=== PATIENT | female | born 2000 | race Caucasian/White ===

== ENCOUNTER 2025-06-08 14:41 | Emergency (ER) | payer MEDICAID, OTHER ==
[~2025-06-08] VITALS: Ht 175.3 cm; Wt 93.9 kg
--- NOTE | 2025-06-08 14:48 | ECG ---
[facility] Test Date: 2025-06-08 Test Time: 14:46:05 Pat Name: MAIRA FRITZ Department: ER Room: Gender: F Bricklayer: KATY : 2000 Requested By: PERLA BRYAN Order Number: [id number] Reading MD: Gary Watkins Measurements Intervals [place] Rate: 134 P: 75 SC: 85 QRS: 97 QRSD: 80 T: -4 QT: 267 QTc: 399 Interpretive Statements Sinus tachycardia Ventricular premature complex Aberrant complex Borderline right axis deviation Borderline repolarization abnormality Baseline wander in lead(s) II,III,aVL,aVF Electronically Signed On 06-11-2025 19:22:22 PST by Gary Watkins Please click the below link to view image of tracing.
[2025-06-08] MEDS: SODIUM CHLORIDE 0.9% 1,000 ML IV ONE ×2 (15:11→15:57)
--- NOTE | 2025-06-08 15:48 | ED.PDOC ---
HPI Comments 24 year old female presents to the ED with a chief complaint of chest pain onset today. Patient states she woke up experiencing cough,used an inhaler that was prescribed about 2 weeks ago, was diagnosed with bronchitis. Shortly after she began experiencing chest pain, shortness of breath, generalized body aches, fever since this morning. Upon ED arrival, HR was 134, temperature 98.9 F. Denies congestion, dizziness, headache, nausea, vomiting, diarrhea, blurred vision. No other symptoms or modifying factors present at this time. Chief Complaint: Chest Pain Time Seen by MD: 15:50 Primary Care Provider: JOHNK Reviewed Notes: Medications, Allergies Allergies: Coded Allergies: NO KNOWN ALLERGIES (Unverified , 10/05/14) Information Source: Patient Mode of Arrival: Ambulatory Severity: Moderate Timing: Hours Duration: Since onset Prehospital treatment: None Location: Substernal Radiation: No Radiation Quality: Pressure Onset: At Rest Cardiac Risk Factors: None PE Risk Factors: None History of: None Modifying Factors: Nothing Associated Signs and Symptoms: SOB Past Medical History PAST MEDICAL HISTORY: Denies Surgical History: Denies all surgeries BILINGUAL PATIENT SUPPORT CASEWORKER History: No Pertinent BILINGUAL PATIENT SUPPORT CASEWORKER History Family History Family History: Unknown Social History Smoker: Non-Smoker Alcohol: Denies ETOH Use Drugs: Denies Drug Use Lives In: Home Constitutional: reports: others (generalzied body aches); denies: chills, diaphoresis, fatigue, fever, malaise, sweats, weakness EENTM: denies: blurred vision, double vision, ear bleeding, ear discharge, ear drainage, ear pain, ear ringing, eye pain, eye redness, hearing loss, mouth pain, mouth swelling, nasal discharge, nose bleeding, nose congestion, nose pa in, photophobia, tearing, throat pain, throat swelling, voice changes, others Respiratory: reports: cough, shortness of breath; denies: hemoptysis, orthopnea, SOB at rest, SOB with excertion, stridor, wheezing, others Cardiovascular: reports: chest pain; denies: dizzy spells, diaphoresis, Dyspnea on exertion, edema, irregular heart beat, left arm pain, lightheadedness, palpitations, PND, syncope, others Gastrointestinal: denies: abdomen distended, abdominal pain, blood streaked bowels, constipated, diarrhea, dysphagia, difficulty swallowing, hematemesis, melena, nausea, poor appetite, poor fluid intake, rectal bleeding, rectal pain, vomiting, others Genitourinary: denies: abnormal vagina bleeding, burning, dyspareunia, dysuria, flank pain, frequency, hematuria, incontinence, pain, , vagina discharge, urgency, others Neurological: denies: dizziness, fainting, headache, left sided numbness, left sided weakness, numbness, paresthesia, pre-existing deficit, right sided numbness, right sided weakness, seizure, speech problems, tingling, tremors, weakness, others Musculoskeletal: denies: back pain, gout, joint pain, joint swelling, muscle pain, muscle stiffness, neck pain, others Integumetry: denies: bruises, change in color, change in hair/nails, dryness, laceration, lesions, lumps, rash, wounds, others Allergic/Immunocompromised: denies: Difficulty Healing, Frequent Infections, Hives, Itching, others Hematologic/Lymphatic: denies: anemia, blood clots, easy bleeding, easy bruising, swollen glands, others Endocrine: denies: excessive hunger, excessive sweating, excessive thirst, excessive urination, flushing, intolerance to cold, intolerance to heat, unexplained weight gain, unexplained weight loss, others Psychiatric: denies: anxiety, bipolar disorder, depression, hopeless, panic disorder, schizophrenia, sleepless, suicidal, others All Other Systems: Reviewed and Negative Physical Exam General Appearance: Normal HEENT: Normal ENT Inspection, Pharynx Normal, TMs Normal Neck: Full Range of Motion, Non-Tender, Normal, Normal Inspection Respiratory: Chest Non-Tender, Lungs Clear, No Accessory Muscle Use, No Respiratory Distress, Normal Breath Sounds Cardiovascular: No Edema, No JVD, No Murmur, No Gallop, Tachycardia Breast Exam: Deferred Gastrointestinal: No Organomegaly, Non Tender, No Pulsatile Mass, Normal Bowel Sounds, Soft Genitalia: Deferred Pelvic: Deferred Rectal: Deferred Extremities: No calf tenderness, Normal capillary refill, Normal inspection, Normal range of motion, Non-tender, No pedal edema Musculoskeletal : Apperance: Normal Neurologic: Alert, 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 Was a procedure done?: No CP Differential Dx Differential Diagnosis: Electrolyte Disorder Differential Diagnosis: Chest Wall Pain, Costochondritis, Pneumonia X-Ray, Labs, Meds, VS Vital Signs Date Time Temp Pulse Resp B/P (MAP) Pulse Ox O2 Delivery O2 Flow Rate FiO2 06/08/25 16:00 98.3 125 13 117/74 (88) 100 98.3 06/08/25 16:00 125 13 100 Room Air* 0 21 06/08/25 15:58 128 06/08/25 14:48 98.9 130 16 137/87 98 98.9 06/08/25 14:46 134 Lab Test 06/08/25 16:10 06/08/25 15:46 06/08/25 14:56 Range/Units Urine Color Colorless Yellow Urine Clarity Clear Clear Urine pH 5.0 5.0-9.0 Urine Specific [place] 1.009 1.001-1.035 Urine Protein Negative Negative Urine Ketones Negative Negative Urine Blood Negative Negative /uL Urine Nitrite Negative Negative Urine Bilirubin Negative Negative Urine Urobilinogen Normal Negative mg/dL Urine Leukocyte Esterase Negative Negative /uL Urine RBC 1 0 - 4 /hpf Urine Microscopic WBC 1 0-5 /HPF Urine Squamous Epithelial Cells Few <5 /hpf Urine Bacteria None seen None Seen /hpf Urine Glucose Normal Normal mg/dL White Blood Count 9.9 4.4-10.8 10^3/uL Red Blood Count 4.10 4.0-5.20 10^6/uL Hemoglobin 12.0 L 12.2-16.2 g/dL Hematocrit 36.5 36.0-46.0 % Mean Corpuscular Volume 89.0 80.0-100.0 fL Mean Corpuscular Hemoglobin 29.4 28.0-32.0 pg Mean Corpuscular Hemoglobin Concent 33.0 32.0-36.0 g/dL Red Cell Distribution Width 13.9 11.8-14.3 % Platelet Count 260 140-450 10^3/uL Mean Platelet Volume 7.5 6.9-10.8 fL Neutrophils (%) (Auto) 87.9 H 37.0-80.0 % Lymphocytes (%) (Auto) 4.8 L 10.0-50.0 % Monocytes (%) (Auto) 6.4 0.0-12.0 % Eosinophils (%) (Auto) 0.7 0.0-7.0 % Basophils (%) (Auto) 0.2 0.0-2.0 % Neutrophils # (Auto) 8.7 H 1.6-8.6 10 ^3/uL Lymphocytes # (Auto) 0.5 0.4-5.4 10 ^3/uL Monocytes # (Auto) 0.6 0-1.3 10 ^3/uL Eosinophils # (Auto) 0.1 0-0.8 10 ^3/uL Basophils # (Auto) 0 0-0.2 10 ^3/uL Nucleated Red Blood Cells 0.0 % Sodium Level 139 136-145 mmol/L Potassium Level 3.9 3.5-5.1 mmol/L Chloride Level 107 98-107 mmol/L Carbon Dioxide Level 20 20-31 mmol/L Anion Gap 12 5-15 Blood Urea Nitrogen 8 L 9-23 mg/dL Creatinine 0.68 0.550-1.02 mg/dL Glomerular Filtration Rate Calc 124 >90 mL/min BUN/Creatinine Ratio 11.8 10.0-20.0 Serum Glucose 94 74-106 mg/dL Calcium Level 8.5 L 8.7-10.4 mg/dL Troponin I High Sensitivity < 3 L < 3 L </=34 ng/L Current Medications Medications (Trade) Dose Ordered Sig/Helen Route Start Time Stop Time Status Last Admin Sodium Chloride 1,000 ml @ 1,000 mls/hr Q1H ONCE IV 06/08/25 15:00 06/08/25 15:59 DC 06/08/25 15:11 Sodium Chloride 1,000 ml @ 1,000 mls/hr Q1H ONCE IV 06/08/25 16:00 06/08/25 16:59 DC 06/08/25 15:57 Time of 1ST Reevaluation: 16:20 Reevaluation 1ST: Unchanged Patient Education/Counseling: Diagnosis, Treatment, Prognosis Family Education/Counseling: No Family Present SEPSIS Sepsis Screen Date sepsis recognized/suspect: Jun 08, 2025 Time Sepsis recognized/suspect: 1444 Recent Procedure: No On Antibiotic Therapy: No Respiratory Rate >20: No Heart Rate >90: Yes Temp<36 C (96.8 F) or >38.3 C: No SBP <90 or MAP <65 mmHG: No New Acute Mental Status Change: No Is the patient on CPAP, BIPAP,: No Physician Orders Troponin-I Hs (06/08/25 17:46) Electrocardigram (06/08/25 17:46) Vital Signs Date Time Temp Pulse Resp B/P (MAP) Pulse Ox O2 Delivery O2 Flow Rate FiO2 06/08/25 16:00 98.3 125 13 117/74 (88) 100 98.3 06/08/25 16:00 125 13 100 Room Air* 0 21 06/08/25 15:58 128 06/08/25 14:48 98.9 130 16 137/87 98 98.9 06/08/25 14:46 134 Laboratory Tests Test 06/08/25 15:46 White Blood Count 9.9 10^3/uL (4.4-10.8) Medications Medications Dose Ordered Sig/Helen Route Start Time Stop Time Status Last Admin Dose Admin Sodium Chloride 1,000 ml @ 1,000 mls/hr Q1H ONCE IV 06/08/25 15:00 06/08/25 15:59 DC 06/08/25 15:11 Sodium Chloride 1,000 ml @ 1,000 mls/hr Q1H ONCE IV 06/08/25 16:00 06/08/25 16:59 DC 06/08/25 15:57 Departure 1 Departure Time of Disposition: 17:28 (Patient presented with chest pain that was concerning for possible STEMI, ACS, PE, Pneumonia, Muscle Strain, COPD, Dissection. Data: 1. I ordered and reviewed the result of at least 3 labs including a CBC, BMP, and Troponin. 2. I independently interpreted the following tests: EKG which shows normal sinus rhythm and Chest X-ray which shows a benign chest.Risk:This patient presented with a high risk of morbidity due to further diagnostic testing or treatment and may suffer from an acute cardiac or respiratory disorder. After review of all the data patient is unlikely to have a pe , dissection, and is low risk for acs. Patient is stable at this time.Workup so far is benign and patient will be discharged with outpatient followup. ) Impression: Primary Impression: Acute chest pain Disposition: HOME / SELF CARE / HOMELESS Condition: Stable Additional Instructions: You presented today with chest pain. Your workup today was benign including labs, troponin, EKG, chest x-ray. Your pain may be from musculoskeletal strain, acid reflux, anxiety, or many other factors. It is important to follow up with your regular doctor within 1 week. If your symptoms worsen or you have any other concerns please return to the emergency room. Discharged With: Self Critical Care Note Critical Care Time?: No Stability Stability form required: No Heart Score Heart Score: Heart Score Response (Comments) Value History N/A 0 EKG N/A 0 Age N/A 0 Risk Factors N/A 0 Troponin N/A 0 Total 0 I personally scribed for PERLA BRYAN MD ([email or web address]) on 06/08/25 at 15:48. Electronically submitted by Shirin Shay ([email or web address]). I personally scribed for PERLA BRYAN MD ([email or web address]) on 06/08/25 at 16:02. Electronically submitted by Shirin Shay ([email or web address]). PERLA BRYAN MD Jun 08, 2025 15:48
[2025-06-08 16:00] VITALS: PULSE 125; RESP 13; O2SAT 100
--- NOTE | 2025-06-08 16:00 | ECG ---
[facility] Test Date: 2025-06-08 Test Time: 15:58:58 Pat Name: MAIRA FRITZ Department: ED Room: Gender: F Emergency Veterinary Assistant: CLARITA : 2000 Requested By: PERLA BRYAN Order Number: [id number] Reading MD: Gary Watkins Measurements Intervals [place] Rate: 128 P: 68 [place]: 110 QRS: 82 QRSD: 82 T: 7 QT: 291 QTc: 425 Interpretive Statements Sinus tachycardia Borderline T wave abnormalities Electronically Signed On 06-11-2025 19:22:25 PST by Gary Watkins Please click the below link to view image of tracing.
[2025-06-08 16:09] LABS: Hematocrit 36.5 % (36.0-46.0); Hemoglobin 12.0 g/dL (12.2-16.2); Mean Corpuscular Hemoglobin 29.4 pg (28.0-32.0); Mean Corpuscular Volume 89.0 fL (80.0-100.0); Nucleated Red Blood Cells % 0.0 %
[2025-06-08 16:24] LABS: Potassium 3.9 mmol/L (3.5-5.1); Sodium 139 mmol/L (136-145)
[2025-06-08 16:25] LABS: Anion Gap 12 (5-15); Carbon Dioxide 20 mmol/L (20-31)
[2025-06-08 16:27] LABS: Calcium 8.5 mg/dL (8.7-10.4); Chloride 107 mmol/L (98-107)
[2025-06-08 16:30] LABS: BUN/Creatinine Ratio 11.8 (10.0-20.0); Glucose 94 mg/dL (74-106)
[2025-06-08 16:36] LABS: Blood Urea Nitrogen 8 mg/dL (9-23)
[2025-06-08 17:12] LABS: Urine Protein, UAD Negative (Negative)
[2025-06-08] MEDS: predniSONE 20 MG TAB PO ONE (18:12)
[2025-06-08 18:15] VITALS: BP 115/67; PULSE 120; RESP 12; TEMP 98; O2SAT 100
== END 2025-06-08 18:18 | disposition home or self-care (01) ==
LOC: ER 14:41
DX: R07.89 Other chest pain (principal); R05.9 Cough, unspecified; R06.02 Shortness of breath
CPT/HCPCS: 36415; 80048; 81001; 84484; 85025; 93005; 96360; 96361; 99284; A4649; A6450; J7030; J7512